=== PATIENT | female | born 1985 | race Caucasian/White ===

== ENCOUNTER 2018-08-10 14:29 | Emergency (ER) | payer OTHER ==
[~2018-08-10] VITALS: Ht 172.7 cm; Wt 96.2 kg
--- NOTE | 2018-08-10 14:29 | NUR ---
PATIENT BIB BLS TO ER BED 2.
[2018-08-10 14:33] VITALS: BP 100/61
--- NOTE | 2018-08-10 14:55 | NUR ---
PT. BIB BLS DUE TO SYNCOPAL EPISODE TODAY. PER PATIENT " I WAS GETTING READY TO TAKE A SHOWER AND I FELT DIZZY AND I WALKED OUT OF THE RESTROOM AND I PASSED OUT AND THEN WOKE UP, MY BOYFRIEND HELPED ME TO THE FLOOR WHEN I PASSED OUT". NO PAIN AT THIS TIME. RR EVEN AND UNLABORED. RR EVEN AND UNLABORED. DENIES ANY DIZZYNESS AT THIS TIME. PT. DENIES HITTING HEAD ON THE FLOOR. ER MD MADE AWARE. SAFETY PRECAUTIONS IMPLEMENTED. WILL CONTINUE TO MONITOR. HOB ELEVATED. PER PT " I WAS TOLD I WASNT SUFFERING FROM SEIZURES BECAUSE THE EEG CAME OUT GOOD SO I HAVE BEEN TAKEN OFF MY MEDICATIONS".
--- NOTE | 2018-08-10 16:00 | NUR ---
PT. RESTING COMFORTABLY IN BED, RR EVEN AND UNLABORED. VSS. WILL CONTINUE TO MONITOR. BOYFRIEND AT BEDSIDE.
[2018-08-10 16:16] VITALS: BP 104/57
--- NOTE | 2018-08-10 16:16 | NUR ---
Patient discharged with v/s stable. Written and verbal after care instructions given and explained. Patient verbalized understanding. Ambulatory with steady gait. All questions addressed prior to discharge. Advised to follow up with PMD 1-2 DAYS
== END 2018-08-10 16:16 | disposition home or self-care (01) ==
LOC: MED 14:29
DX: R55 Syncope and collapse (principal); F43.10 Post-traumatic stress disorder, unspecified; F41.9 Anxiety disorder, unspecified; F31.9 Bipolar disorder, unspecified; G40.909 Epilepsy, unspecified, not intractable, without status epilepticus
CPT/HCPCS: 81025; 93005; 99283